=== PATIENT | male | born 1975 | race Caucasian/White ===

== ENCOUNTER 2016-06-12 08:46 | Emergency (ER) | payer MEDICAID | END 2016-06-12 09:20 | disposition left against medical advice (07) | LOC: UCEAST 08:46 | DX: Z53.21 Procedure and treatment not carried out due to patient leaving prior to being seen by health care provider (principal); R09.89 Other specified symptoms and signs involving the circulatory and respiratory systems ==

== ENCOUNTER 2017-06-15 20:11 | Emergency (ER) | payer MEDICAID ==
[2017-06-15 20:27] VITALS: BP 129/68
--- NOTE | 2017-06-15 20:34 | UC ---
Throat Pain/Nasal Alexandre HPI - HPI Summary HPI Summary: 5 days worsen worsening left side ear and throat pain--pain is stabbing though the ear and down side of throat - History of Current Complaint Chief Complaint: UCEar Stated Complaint: EAR AND THROAT PAIN Time Seen by Provider: 06/15/17 20:30 Hx Obtained From: Patient Onset/Duration: Sudden Onset, Lasting Days - 5, Still Present Severity: Moderate Cough: None Associated Signs & Symptoms: Positive: Negative Related History: Seasonal Allergies, Smoking - Allergies/Home Medications Allergies/Adverse Reactions: Allergies Allergy/AdvReac Type Severity Reaction Status Date / Time Cephalexin [From Keflex] Allergy Mild Rash Verified 06/15/17 20:25 Hydrocodone [From Vicodin] AdvReac Mild Itching Verified 06/15/17 20:25 PMH/Surg Hx/FS Hx/Imm Hx Previously Healthy: Yes - Surgical History Surgical History: Yes Surgery Procedure, Year, and Place: Right Lymph node removal; Left Shoulder Arthroscopy; Repair of SLAP Lesion - Family History Known Family History: Positive: Hypertension, Diabetes - Social History Occupation: Unemployed Lives: With Family Alcohol Use: None Substance Use Type: None Smoking Status (MU): Heavy Every Day Tobacco Smoker Type: Cigarettes Amount Used/How Often: 1/2 PPD Length of Time of Smoking/Using Tobacco: 23 years Have You Smoked in the Last Year: Yes Household Exposure Type: Cigarettes Cessation Counseling: Counseled 3+Min - 10 Min - Immunization History Most Recent Influenza Vaccination: 2013 Most Recent Tetanus Shot: UTD Review of Systems Constitutional: Negative Skin: Negative Eyes: Negative ENT: Sore Throat - l, Ear Ache - l Respiratory: Negative Cardiovascular: Negative Gastrointestinal: Negative Genitourinary: Negative Motor: Negative Neurovascular: Negative Musculoskeletal: Negative Neurological: Negative Psychological: Negative Is Patient Immunocompromised?: No All Other Systems Reviewed And Are Negative: Yes Physical Exam Triage Information Reviewed: Yes Appearance: Well-Appearing, No Pain Distress, Well-Nourished Vital Signs: Initial Vital Signs Temp 98.2 F 06/15/17 20:19 Pulse 84 06/15/17 20:19 Resp 16 06/15/17 20:19 BP 129/68 06/15/17 20:19 Pulse Ox 99 06/15/17 20:19 Vital Signs Reviewed: Yes Eye Exam: Normal Eyes: Positive: Conjunctiva Clear ENT Exam: Normal ENT: Positive: Normal ENT inspection, Hearing grossly normal, Pharynx normal, TMs normal, Uvula midline. Negative: Nasal congestion, Nasal drainage, Tonsillar swelling, Tonsillar exudate, Trismus, Muffled voice, Hoarse voice, Dental tenderness, Sinus tenderness Dental Exam: Normal Neck exam: Normal Neck: Positive: Supple, Nontender, No Lymphadenopathy Respiratory Exam: Normal Respiratory: Positive: Chest non-tender, Lungs clear, Normal breath sounds, No respiratory distress, No accessory muscle use Cardiovascular Exam: Normal Cardiovascular: Positive: RRR, No Murmur, Pulses Normal, Brisk Capillary Refill Musculoskeletal Exam: Normal Musculoskeletal: Positive: Strength Intact, ROM Intact, No Edema Neurological Exam: Normal Neurological: Positive: Alert, Muscle Tone Normal Psychological Exam: Normal Skin Exam: Normal Throat Pain/Nasal Course/Dx - Course Assessment/Plan: mucinex D, Flonase, Zithromax, Increase fluids, nicotine cesasation information follow with pcp prn - Differential Dx/Diagnosis Provider Diagnoses: Serrous otitis Media (L) Discharge - Discharge Plan Condition: Stable Disposition: HOME Prescriptions: Azithromycin TAB* [Zithromax TAB (Z-CLIFTON) 250 mg #6 tabs] 250 mg PO DAILY #4 tab Fluticasone NASAL SPRAY 50MCG* [Flonase NASAL SPRAY 50MCG*] 2 spray BOTH NARES DAILY #1 btl Patient Education Materials: How to Stop Smoking (ED), Serous Otitis Media (ED) , How to Use Nasal Ernest (ED) Referrals: Gregorio Hastings MD [Primary Care Provider] - If Needed
[2017-06-15] MEDS ORDERED: Azithromycin TAB* 250 MG PO ONE (20:54)
== END 2017-06-15 21:06 | disposition home or self-care (01) ==
LOC: UCEAST 20:11
DX: H65.92 Unspecified nonsuppurative otitis media, left ear (principal); F17.210 Nicotine dependence, cigarettes, uncomplicated; Z88.3 Allergy status to other anti-infective agents; Z88.8 Allergy status to other drugs, medicaments and biological substances
CPT/HCPCS: 99212; A9270-GY; G0463

== ENCOUNTER 2017-11-19 19:49 | Emergency (ER) | payer MEDICAID ==
[2017-11-19] MEDS ORDERED: Lidocaine 1%* 5 ML VIAL INJ ONE (19:57)
[2017-11-19 20:15] VITALS: BP 141/83
--- NOTE | 2017-11-19 20:56 | UC ---
Laceration HPI - HPI Summary HPI Summary: Was trying to prevent the door of his truck close and had finger get caught in it while the door closed completely, index of left hand sustained laceration and it feels mildly numb. States he has ability to flex and extend it but is somewhat stiff. Last tetanus vaccine within 10 years, States only PMH is exercise induced asthma, smokes cigarettes. - History Of Current Complaint Chief Complaint: UCLaceration Stated Complaint: FINGER INJURY Time Seen by Provider: 11/19/17 19:55 Hx Obtained From: Patient Laceration Location: Finger Mechanism Of Injury: Blunt Trauma Onset/Duration: Sudden Onset, Lasting Hours Severity: Mild Pain Intensity: 2 Aggravating Factors: Nothing Related History: Occupational Injury, Other: - left hand - Allergies/Home Medications Allergies/Adverse Reactions: Allergies Allergy/AdvReac Type Severity Reaction Status Date / Time cephalexin Allergy Intermediate Rash Verified 11/19/17 20:16 hydrocodone Allergy Intermediate anxiety Verified 11/19/17 20:16 itching PMH/Surg Hx/FS Hx/Imm Hx Respiratory History: Asthma - Surgical History Surgical History: Yes Surgery Procedure, Year, and Place: Right Lymph node removal; Left Shoulder Arthroscopy; Repair of SLAP Lesion - Family History Known Family History: Positive: Hypertension, Diabetes - Social History Alcohol Use: Occasionally Substance Use Type: None Smoking Status (MU): Heavy Every Day Tobacco Smoker Type: Cigarettes Amount Used/How Often: 1/2 PPD Length of Time of Smoking/Using Tobacco: 23 years Have You Smoked in the Last Year: Yes Household Exposure Type: Cigarettes - Immunization History Most Recent Influenza Vaccination: 2013 Most Recent Tetanus Shot: UTD Review of Systems Constitutional: Negative Musculoskeletal: Arthralgia, Myalgia All Other Systems Reviewed And Are Negative: Yes Physical Exam Triage Information Reviewed: Yes Appearance: Well-Appearing, No Pain Distress, Obese Vital Signs: Initial Vital Signs Temp 98.2 F 11/19/17 20:10 Pulse 77 11/19/17 20:10 Resp 18 11/19/17 20:10 BP 141/83 11/19/17 20:10 Pulse Ox 100 11/19/17 20:10 Vital Signs Reviewed: Yes Eyes: Positive: Conjunctiva Clear ENT: Positive: Hearing grossly normal Neck: Positive: Supple Respiratory: Positive: Chest non-tender Cardiovascular: Positive: Pulses Normal, Brisk Capillary Refill Abdomen Description: Positive: Nontender Skin Exam: Other Laceration Repair - Laceration Repair 1 Description: Linear Laceration Size After Repair: Length (cm) - 2.4cm volar aspect of index finger left, on distal mid phalanx and proximal distalphalanx Modified For Repair: No Type Injection: Digital Anesthesia Used: 1.0% Lido Cleansing Completed Via Routine Prep: Yes Closure Material: Sutures Closure Method: Single Layer Suture Of: Skin Suture Type: Prolene 2 Description: Linear Laceration Size After Repair: Length (cm) - 1cm Modified For Repair: No Cleansing Completed Via Routine Prep: Yes Closure Material: Skin Adhesive Closure Method: Single Layer Suture Of: Skin Suture Type: Other - 1cm laceration dorsum of distal phalanx on left index finger Laceration Course/Dx - Course/Dx Course Of Treatment: lacerations on volar and dorsal areas of left index finger repaired. xray shows no fracture FROM extension and flexion. Laceration dressed, return in 7 days for wound review - Differential Dx - Laceration/Wound Provider Diagnoses: Laceration of finger left index Discharge - Sign-Out/Discharge Documenting (check all that apply): Discharge/Admit/Transfer - Discharge Plan Condition: Good Disposition: HOME Patient Education Materials: Laceration (ED), Care For Your Stitches (DC), Sulfamethoxazole/Trimethoprim (By mouth) Referrals: Gregorio Hastings MD [Primary Care Provider] - - Billing Disposition and Condition Condition: GOOD Disposition: Home
--- NOTE | 2017-11-19 21:03 | RAD ---
INDICATION: Left second digit injury COMPARISON: None TECHNIQUE: AP, lateral, and oblique views were obtained. FINDINGS: The bony structures, joint spaces, and soft tissues are normal for age. IMPRESSION: NO ACUTE FRACTURE.
[2017-11-19] MEDS ORDERED: Sulfamethox/Trimethoprim DS 800/160* TAB PO ONE (21:27)
== END 2017-11-19 21:35 | disposition home or self-care (01) ==
LOC: UCEAST 19:49
DX: S61.211A Laceration without foreign body of left index finger without damage to nail, initial encounter (principal); F17.210 Nicotine dependence, cigarettes, uncomplicated; Z88.1 Allergy status to other antibiotic agents; Z88.5 Allergy status to narcotic agent; W23.1XXA Caught, crushed, jammed, or pinched between stationary objects, initial encounter; V69.3XXA Occupant (driver) (passenger) of heavy transport vehicle injured in unspecified nontraffic accident, initial encounter; Y92.9 Unspecified place or not applicable
CPT/HCPCS: 12001; 73140; 99212; A9270-GY; G0463

== ENCOUNTER 2018-02-01 19:17 | Emergency (ER) | payer OTHER ==
[2018-02-01 20:01] VITALS: BP 131/67
--- NOTE | 2018-02-01 20:39 | UC ---
Laceration HPI - HPI Summary HPI Summary: 42-year-old male presents with laceration to left lateral heel. States occurred around 5:15 this afternoon. He was fishing and slipped on the bank and foot went into water and mud. He is unsure what he cut his foot on and states he was wearing flip flops at the time. He was able to control bleeding with direct pressure. He was able to ambulate immediately after the injury and in the clinic. Unknown tetanus status. Denies fevers, chills, erythema, drainage, numbness, or tingling. - History Of Current Complaint Chief Complaint: UCLaceration Stated Complaint: LEFT FOOT LACERATION Time Seen by Provider: 02/01/18 20:37 Hx Obtained From: Patient Laceration Location: Foot - Left lateral heel. See diagram. Mechanism Of Injury: FB Potential Onset/Duration: Sudden Onset Severity: Moderate Pain Intensity: 9 Aggravating Factors: Nothing Feet (Multiple View): 1 - 7 cm linear laceration involving the subcutaneous layer. - Allergies/Home Medications Allergies/Adverse Reactions: Allergies Allergy/AdvReac Type Severity Reaction Status Date / Time cephalexin Allergy Intermediate Rash Verified 02/01/18 20:01 hydrocodone Allergy Intermediate anxiety Verified 02/01/18 20:01 itching Home Medications: Home Medications NK [No Home Medications Reported] 02/01/18 [History Confirmed 02/01/18] PMH/Surg Hx/FS Hx/Imm Hx Endocrine History: Other Other Endocrine History: Prediabetes - Surgical History Surgical History: Yes Surgery Procedure, Year, and Place: Right Lymph node removal; Left Shoulder Arthroscopy; Repair of SLAP Lesion - Family History Known Family History: Positive: Hypertension - Father, Diabetes - Father - Social History Occupation: Unemployed Lives: With Family Alcohol Use: Occasionally Substance Use Type: None Smoking Status (MU): Heavy Every Day Tobacco Smoker Type: Cigarettes Amount Used/How Often: 1 ppd Length of Time of Smoking/Using Tobacco: 23 years Have You Smoked in the Last Year: Yes Household Exposure Type: Cigarettes - Immunization History Most Recent Influenza Vaccination: 2013 Most Recent Tetanus Shot: pt unsure Review of Systems Constitutional: Negative Skin: Other - See HPI Motor: Negative Neurovascular: Negative Musculoskeletal: Negative Is Patient Immunocompromised?: No All Other Systems Reviewed And Are Negative: Yes Physical Exam Triage Information Reviewed: Yes Appearance: Well-Appearing, No Pain Distress, Well-Nourished Vital Signs: Initial Vital Signs Temp 98.5 F 02/01/18 19:54 Pulse 100 02/01/18 19:54 Resp 18 02/01/18 19:54 BP 131/67 02/01/18 19:54 Pulse Ox 97 02/01/18 19:54 Vital Signs Reviewed: Yes Respiratory: Positive: No respiratory distress Cardiovascular: Positive: Pulses Normal, Brisk Capillary Refill Musculoskeletal: Positive: Strength Intact - Left lower extremity, ROM Intact - Left ankle Neurological: Positive: Alert, Other: - Sensation intact distally Skin: Positive: significant lesion(s) - 7 cm linear laceration involving subcutaneous tissue. Diagnostics - Radiology No standard instances Xray Interpretation: Positive (See Comments) - Possible FB left lateral heel Radiology Interpretation Completed By: ED Physician Laceration Course/Dx - Course/Dx Course Of Treatment: 42 year old male with laceration to left lateral heel. Slipped while fishing and foot was submerged underwater and mud. Uncertain of what caused the laceration. Exam reveals a 7 cm linear laceration that extends to the subcutaneous layer that was highly contaminated on arrival. Bleeding was controlled. X-ray revealed a possible FB within the wound. Case was discussed with Dr. Fajardo and patient examined contemporaneously. Recommend further evaluation in ED for possible wound exploration and debridement in the OR. Patient tetanus updated. Given clindamycin 300 mg and levofloxacin 750 mg x 1 dose prior to transfer. Patient instructed to remain NPO. Verbalizes understanding and agrees with POC. - Differential Dx - Laceration/Wound Provider Diagnoses: laceration heel, elevated blood pressure - Physician Notification/Consults Discussed Patient Care With: Caitlin Mercado NP Time Discussed With Above Provider: 21:20 Instructed by Provider To: Will See In ED Discharge - Sign-Out/Discharge Documenting (check all that apply): Patient Departure All imaging exams completed and their final reports reviewed: No - Discharge Plan Condition: Stable Disposition: HOME-RECOMMEND TO ED Patient Education Materials: Laceration (ED), Soft Tissue Foreign Body (ED) Referrals: Gregorio Hastings MD [Primary Care Provider] - Additional Instructions: There is a question of a foreign body within the wound on your foot. Based on this we are recommending that you be evaluated further in the emergency room for possible wound cleaning in the operating room. Your tetanus was updated today. Be sure to notify your primary care provider so that they can update their records. Do not eat or drink anything until after you have been evaluated and told that it is ok to do so. Your blood pressure in the clinic tonight was mildly elevated. It is recommended that you follow up with your primary care provider to have this rechecked. - Billing Disposition and Condition Condition: STABLE Disposition: Home-Recommend to ED
[2018-02-01] MEDS ORDERED: Tetan/Diph/Pertus SYR(Tdap)* 0.5 ML SYR(BOOSTRIX) use SYR IM ONE (20:52)
[2018-02-01] MEDS ORDERED: Clindamycin CAP* 150 MG PO ONE (21:13)
[2018-02-01] MEDS ORDERED: Levofloxacin TAB* 250 MG PO ONE (21:13)
--- NOTE | 2018-02-02 08:10 | RAD ---
HISTORY: r/o FB, penetrating trauma to the left foot COMPARISONS: None VIEWS: 2 , Frontal and lateral views of the left foot FINDINGS: BONE DENSITY: Normal. BONES: There is no displaced fracture. There are small calcaneal enthesophytes. JOINTS: There is no arthropathy. ALIGNMENT: There is no dislocation. SOFT TISSUES: There is soft tissue irregularity along the lateral aspect of the heel. OTHER FINDINGS: There is no radiopaque foreign body.. IMPRESSION: NO RADIOPAQUE FOREIGN BODY. NO ACUTE OSSEOUS INJURY. IF SYMPTOMS PERSIST, RECOMMEND REPEAT IMAGING. R1
== END 2018-02-01 21:40 | disposition home health service (06) ==
LOC: UCCORT 19:17
DX: S91.312A Laceration without foreign body, left foot, initial encounter (principal); W18.42XA Slipping, tripping and stumbling without falling due to stepping into hole or opening, initial encounter; Y93.89 Activity, other specified; Y92.828 Other wilderness area as the place of occurrence of the external cause; I10 Essential (primary) hypertension; F17.210 Nicotine dependence, cigarettes, uncomplicated; Z23 Encounter for immunization
CPT/HCPCS: 90471; 90715; 99213; A9270-GY; G0463

== ENCOUNTER 2018-02-19 19:29 | Emergency (ER) | payer OTHER ==
[2018-02-19 19:40] VITALS: BP 143/97
[2018-02-19] MEDS ORDERED: Sulfamethox/Trimethoprim DS 800/160* TAB PO ONE (19:59)
--- NOTE | 2018-02-19 20:01 | UC ---
Skin Complaint HPI - HPI Summary HPI Summary: PATIENT SUSTAINED A LACERATION TO HIS LEFT LATERAL HEEL ABOUT 2.5 WEEKS AGO ON A FISHING TRIP. WENT TO [facility] ED AND HAD WOUND CLEANED AND SUTURED. TOOK 7 DAYS OF LEVAQUIN. PATIENT STATES WOUND WAS HEALING WELL AND FEELING GOOD. REMOVED THE SUTURES BY HIMSELF YESTERDAY. WENT ON A FISHING TRIP TODAY. THIS MORNING NOTICED REDNESS, SWELLING AND INCREASED PAIN AROUND THE LACERATION. - History of Current Complaint Chief Complaint: UCWounds Time Seen by Provider: 02/19/18 19:46 Stated Complaint: FOOT COMPLAINT Hx Obtained From: Patient Onset/Duration: Gradual Onset, Lasting Hours, Still Present Timing: Constant Onset Severity: Moderate Current Severity: Moderate Pain Intensity: 8 Pain Scale Used: 0-10 Numeric Location: Discrete - LEFT HEEL Character: Swelling, Pain, Redness Aggravating Factor(s): Touch Alleviating Factor(s): Nothing Associated Signs & Symptoms: Positive: Tenderness - Allergy/Home Medications Allergies/Adverse Reactions: Allergies Allergy/AdvReac Type Severity Reaction Status Date / Time cephalexin Allergy Intermediate Rash Verified 02/19/18 19:40 hydrocodone Allergy Intermediate anxiety Verified 02/19/18 19:40 itching Home Medications: Home Medications Ibuprofen TAB* [Advil TAB*] 1,000 mg PO ONCE PRN 02/19/18 [History Confirmed ] Review of Systems Constitutional: Negative Skin: Other - ERYTHEMA, HEALING LACERATION LEFT HEEL Respiratory: Negative Cardiovascular: Negative Gastrointestinal: Negative Musculoskeletal: Edema All Other Systems Reviewed And Are Negative: Yes PMH/Surg Hx/FS Hx/Imm Hx - Additional Past Medical History Additional PMH: VI Endocrine History: Diabetes Respiratory History: Asthma - Surgical History Surgical History: Yes Surgery Procedure, Year, and Place: Right Lymph node removal; Left Shoulder Arthroscopy; Repair of SLAP Lesion - Family History Known Family History: Positive: Hypertension - Father, Diabetes - Father - Social History Alcohol Use: Occasionally Substance Use Type: None Smoking Status (MU): Current Every Day Smoker Type: Cigarettes Amount Used/How Often: 1/2 ppd Length of Time of Smoking/Using Tobacco: 23 years Have You Smoked in the Last Year: Yes Household Exposure Type: Cigarettes - Immunization History Most Recent Influenza Vaccination: 2013 Most Recent Tetanus Shot: 02/01/18 Physical Exam Triage Information Reviewed: Yes Appearance: Well-Appearing, No Pain Distress, Well-Nourished Vital Signs: Initial Vital Signs Temp 98 F 02/19/18 19:32 Pulse 88 02/19/18 19:32 Resp 16 02/19/18 19:32 BP 143/97 02/19/18 19:32 Pulse Ox 98 02/19/18 19:32 Vital Signs Reviewed: Yes Eyes: Positive: Conjunctiva Clear ENT: Positive: Hearing grossly normal Neck: Positive: Supple Respiratory: Positive: No respiratory distress, No accessory muscle use Cardiovascular: Positive: Pulses Normal Abdomen Description: Positive: Soft Musculoskeletal: Positive: ROM Intact, Edema @ - LEFT HEEL/FOOT Neurological: Positive: Alert Psychological: Positive: Age Appropriate Behavior Skin: Positive: Other - 6CM LINEAR HEALING LACERATION LEFT LATERAL HEEL WITH CRUST. SURROUNDING SKIN ERYTHEMATOUS. FOOT IS DIRTY. SOME SKIN MACERATION Course/Dx - Diagnoses Provider Diagnoses: WOUND INFECTION/CELLULITIS LEFT HEEL Discharge - Sign-Out/Discharge Documenting (check all that apply): Patient Departure All imaging exams completed and their final reports reviewed: No Studies - Discharge Plan Condition: Stable Disposition: HOME Prescriptions: Sulfamethox/Trimethoprim DS* [Bactrim DS 800/160 TAB*] 1 tab PO BID #19 tab Patient Education Materials: Cellulitis (ED) Forms: *Work Release Referrals: Gregorio Hastings MD [Primary Care Provider] - 3 Days Additional Instructions: YOU APPEAR TO HAVE DEVELOPED A SKIN INFECTION SURROUNDING THE LACERATION ON YOUR LEFT FOOT. TAKE THE ANTIBIOTICS TWICE DAILY FOR THE FULL 10 DAYS. HOT SOAKS 2-3 TIMES DAILY. KEEP CLEAN AND DRY. ELEVATE WHEN SEATED. FOLLOW-UP WITH YOUR PCP IN 2-3 DAYS FOR REEVALUATION IF IT DOES NOT SEEM TO BE IMPROVING. GO TO THE ED WITHOUT FAIL IF YOU DEVELOP FEVER, WORSENING PAIN, SWELLING, PURULENT DRAINAGE OR ANY OTHER CONCERNING SYMPTOMS. - Billing Disposition and Condition Condition: STABLE Disposition: Home
== END 2018-02-19 20:30 | disposition home or self-care (01) ==
LOC: UCEAST 19:29
DX: S91.312D Laceration without foreign body, left foot, subsequent encounter (principal); L08.9 Local infection of the skin and subcutaneous tissue, unspecified; L03.114 Cellulitis of left upper limb; W26.9XXD Contact with unspecified sharp object(s), subsequent encounter; Z88.1 Allergy status to other antibiotic agents; Z88.5 Allergy status to narcotic agent; F17.210 Nicotine dependence, cigarettes, uncomplicated
CPT/HCPCS: 99212; A9270-GY; G0463

== ENCOUNTER 2018-12-02 12:16 | Emergency (ER) | payer OTHER ==
[2018-12-02 12:49] VITALS: BP 120/79
--- NOTE | 2018-12-02 13:11 | UC ---
Skin Complaint HPI - HPI Summary HPI Summary: 43 yo male with tick bite in region of left popliteal fossa unsure exactly how long it has been one - History of Current Complaint Chief Complaint: UCBiteInjury Time Seen by Provider: 12/02/18 12:50 Stated Complaint: TICK Hx Obtained From: Patient Timing: Constant Onset Severity: Mild Current Severity: Mild Pain Intensity: 3 Pain Scale Used: 0-10 Numeric Location: Discrete Character: Pain, Painful Aggravating Factor(s): Other Alleviating Factor(s): Nothing Related History: Insect Bite/Sting - Allergy/Home Medications Allergies/Adverse Reactions: Allergies Allergy/AdvReac Type Severity Reaction Status Date / Time cephalexin Allergy Intermediate Rash Verified 12/02/18 12:44 hydrocodone Allergy Intermediate anxiety Verified 12/02/18 12:44 itching PMH/Surg Hx/FS Hx/Imm Hx Previously Healthy: Yes - Surgical History Surgical History: Yes Surgery Procedure, Year, and Place: Right Lymph node removal; Left Shoulder Arthroscopy; Repair of SLAP Lesion - Family History Known Family History: Positive: Hypertension - Father, Diabetes - Father - Social History Alcohol Use: Occasionally Substance Use Type: Excessive Caffeine Substance Use Comment - Amount & Last Used: 6-7 [employer] Daily Smoking Status (MU): Heavy Every Day Tobacco Smoker Type: Cigarettes Amount Used/How Often: ~1/2 PPD Length of Time of Smoking/Using Tobacco: Since Age 12 (Quit for 3 Years) Have You Smoked in the Last Year: Yes Household Exposure Type: Cigarettes - Immunization History Most Recent Influenza Vaccination: 2013 Most Recent Tetanus Shot: 02/01/18 Review of Systems All Other Systems Reviewed And Are Negative: Yes Constitutional: Positive: Negative Skin: Positive: Negative Eyes: Positive: Negative ENT: Positive: Negative Respiratory: Positive: Negative Cardiovascular: Positive: Negative Gastrointestinal: Positive: Negative Genitourinary: Positive: Negative Motor: Positive: Negative Neurovascular: Positive: Negative Musculoskeletal: Positive: Negative Neurological: Positive: Negative Psychological: Positive: Negative Physical Exam Triage Information Reviewed: Yes Appearance: Well-Appearing, No Pain Distress, Well-Nourished Vital Signs: Initial Vital Signs Temp 99 F 12/02/18 12:42 Pulse 74 12/02/18 12:42 Resp 16 12/02/18 12:42 BP 120/79 12/02/18 12:42 Pulse Ox 98 07/06/19 12:42 Vital Signs Reviewed: Yes Eyes: Positive: Conjunctiva Clear ENT: Positive: Normal ENT inspection, Hearing grossly normal. Negative: Nasal congestion, Nasal drainage, Hoarse voice Dental: Positive: Gross Decay/Caries @ Neck: Positive: Supple, Nontender Respiratory: Positive: Lungs clear, Normal breath sounds, No respiratory distress, No accessory muscle use Cardiovascular: Positive: RRR, No Murmur Musculoskeletal: Positive: ROM Intact, No Edema Neurological: Positive: Alert Psychological Exam: Normal Skin Exam: Other - see image Images Front/Back of Body, Lg ([place]): 1 - tick-moderately engorged Course/Dx - Course Course Of Treatment: tick removed in toto with tick twister - Diagnoses Provider Diagnosis: Tick bite with subsequent removal of tick Discharge - Sign-Out/Discharge Documenting (check all that apply): Patient Departure All imaging exams completed and their final reports reviewed: No Studies - Discharge Plan Condition: Stable Disposition: HOME Prescriptions: DOXYcycline CAP(*) [DOXYcycline 100MG CAP(*)] 200 mg PO ONCE #2 cap Patient Education Materials: Tick Bite (ED) Referrals: Gregorio Hastings MD [Primary Care Provider] - If Needed - Billing Disposition and Condition Condition: STABLE Disposition: Home
== END 2018-12-02 13:17 | disposition home or self-care (01) ==
LOC: UCCORT 12:16
DX: T63.481A Toxic effect of venom of other arthropod, accidental (unintentional), initial encounter (principal); Y92.9 Unspecified place or not applicable; F17.210 Nicotine dependence, cigarettes, uncomplicated
CPT/HCPCS: 99212; G0463

== ENCOUNTER 2019-03-29 10:48 | Emergency (ER) | payer OTHER ==
[2019-03-29 11:01] VITALS: BP 137/80
--- NOTE | 2019-03-29 11:21 | UC ---
Respiratory Complaint HPI - HPI Summary HPI Summary: 44-year-old male comes in with a chief complaint of 4 days of upper respiratory tract infection symptoms. Patient is a smoker. He's been using over-the- counter medicines however his symptoms are getting worse and is feeling congestion and tightness in his chest. He just ran out of his albuterol inhaler which was helping. Patient reports that he's had pneumonia in the past and that if he doesn't treat at this stage he gets worse. - History of Current Complaint Chief Complaint: UCGeneralIllness Stated Complaint: COUGH,CHEST CONGESTION Time Seen by Provider: 03/29/19 11:13 Pain Intensity: 0 - Allergies/Home Medications Allergies/Adverse Reactions: Allergies Allergy/AdvReac Type Severity Reaction Status Date / Time cephalexin Allergy Intermediate Rash Verified 03/29/19 11:01 hydrocodone Allergy Intermediate anxiety Verified 03/29/19 11:01 itching Home Medications: Home Medications Ibuprofen TAB* [Motrin TAB* 600 MG] 600 mg PO Q6H PRN 03/29/19 [History Confirmed 03/29/19] Pseudoephedrine TAB* [Sudafed TAB*] 30 mg PO Q6H PRN 03/29/19 [History Confirmed 03/29/19] guaiFENesin ER TAB [Mucinex*] 600 mg PO BID PRN 03/29/19 [History Confirmed ] PMH/Surg Hx/FS Hx/Imm Hx Previously Healthy: Yes - Surgical History Surgical History: Yes Surgery Procedure, Year, and Place: Right Lymph node removal; Left Shoulder Arthroscopy; Repair of SLAP Lesion - Family History Known Family History: Positive: Hypertension - Father, Diabetes - Father - Social History Alcohol Use: Rare Substance Use Type: Excessive Caffeine Substance Use Comment - Amount & Last Used: 6-7 [employer] Daily Smoking Status (MU): Heavy Every Day Tobacco Smoker Type: Cigarettes Amount Used/How Often: ~1/2 PPD Length of Time of Smoking/Using Tobacco: Since Age 12 (Quit for 3 Years) Have You Smoked in the Last Year: Yes Household Exposure Type: Cigarettes - Immunization History Most Recent Influenza Vaccination: 2013 Most Recent Tetanus Shot: 02/01/18 Review of Systems All Other Systems Reviewed And Are Negative: Yes Constitutional: Positive: Other - SEE HPI Skin: Positive: Negative Eyes: Positive: Negative ENT: Positive: Nasal Discharge, Sinus Congestion Respiratory: Positive: Shortness Of Breath, Cough, Other - SEE HPI Cardiovascular: Positive: Negative Gastrointestinal: Positive: Negative Motor: Positive: Negative Neurovascular: Positive: Negative Musculoskeletal: Positive: Negative Neurological: Positive: Negative Psychological: Positive: Negative Is Patient Immunocompromised?: No Physical Exam Triage Information Reviewed: Yes Appearance: Well-Appearing, No Pain Distress, Well-Nourished Vital Signs: Initial Vital Signs Temp 98.2 F 03/29/19 10:57 Pulse 81 03/29/19 10:57 Resp 20 03/29/19 10:57 BP 137/80 03/29/19 10:57 Pulse Ox 100 03/29/19 10:57 Vital Signs Reviewed: Yes Eye Exam: Normal Eyes: Positive: Conjunctiva Clear ENT: Positive: Pharyngeal erythema, Nasal congestion, Nasal drainage, TMs normal Respiratory: Positive: No respiratory distress, Rhonchi - LEFT UPPER CHEST Cardiovascular: Positive: RRR Musculoskeletal: Positive: Strength Intact, ROM Intact Neurological: Positive: Alert, Muscle Tone Normal Psychological: Positive: Age Appropriate Behavior Skin Exam: Normal Respiratory Course/Dx - Course Course Of Treatment: DISCUSSED VIRAL VERSES BACTERIAL INFECTIONS AND THE ROLE OF ANTIBIOTICS. THE PATIENT PREFERS TO BE ON ANTIBIOTICS AT THIS TIME. - Differential Dx/Diagnosis Provider Diagnosis: Bronchitis with bronchospasm Discharge ED - Sign-Out/Discharge Documenting (check all that apply): Patient Departure All imaging exams completed and their final reports reviewed: No Studies - Discharge Plan Condition: Stable Disposition: HOME Prescriptions: Albuterol HFA INHALER* [Ventolin HFA Inhaler*] 2 puff INH Q4H PRN #1 mdi PRN Reason: Wheezing Azithromyxin [place] (NF) [Z-Clifton (Zithromax) 250 mg tabs #6] 2 tab PO .TODAY, THEN 1 DAILY #6 tab Patient Education Materials: Acute Bronchitis (ED), Bronchospasm (ED) Referrals: Gregorio Hastings MD [Primary Care Provider] - Additional Instructions: FOLLOW UP WITH YOUR DOCTOR IF NOT COMPLETELY IMPROVED. GET REEVALUATED SOONER IF NOT IMPROVING OR YOUR CONDITION WORSENS OR ANY QUESTIONS OR CONCERNS. - Billing Disposition and Condition Condition: STABLE Disposition: Home
== END 2019-03-29 11:28 | disposition home or self-care (01) ==
LOC: UCCORT 10:48
DX: J40 Bronchitis, not specified as acute or chronic (principal); J98.01 Acute bronchospasm; F17.210 Nicotine dependence, cigarettes, uncomplicated; Z88.1 Allergy status to other antibiotic agents; Z88.5 Allergy status to narcotic agent
CPT/HCPCS: 99212; G0463